=== PATIENT | female | born 1940 | race Caucasian/White ===

== ENCOUNTER 2017-08-12 16:18 | Outpatient (CLI) | payer MEDICARE | END 2017-08-12 16:19 | disposition home or self-care (01) | LOC: BICMAMMO 16:18 | PROVIDERS: ATTEND Obstetrics & Gynecology | DX: Z12.31 Encounter for screening mammogram for malignant neoplasm of breast (principal); R92.1 Mammographic calcification found on diagnostic imaging of breast | CPT/HCPCS: 77063; 77067 ==

== ENCOUNTER 2019-01-03 14:08 | Outpatient (CLI) | payer MEDICARE ==
--- NOTE | 2019-01-03 15:54 | BD ---
DEXA BONE DENSITY STUDY: HISTORY: Postmenopausal female. Screening study. COMPARISON: None. FINDINGS: LUMBAR SPINE BMD (g/cm2) T-SCORE Z-SCORE L1 0.921 -0.6 1.6 L2 0.933 -0.9 1.7 L3 1.087 0.0 2.7 L4 1.069 0.1 2.8 TOTAL 1.010 -0.3 2.2 FEMORAL NECK 0.689 -1.4 0.8 TOTAL 0.813 -1.1 0.9 IMPRESSION: 1. The lumbar spine WHO classification is normal. Fracture risk is not increased. 2. The femoral neck WHO classification is osteopenia. 3. Ten fracture risk is not reported because prior hip or vertebral fracture. POS: OFF
--- NOTE | 2019-01-03 17:05 | MMO ---
Bilateral MAMMO Bilat Screen [facility]. CLINICAL HISTORY: Patient is 78 years old and is seen for screening. The patient has no family history of breast cancer. The patient has no personal history of cancer. VIEWS: The views performed were: bilateral craniocaudal with tomosynthesis and bilateral mediolateral oblique with tomosynthesis. FILMS COMPARED: The present examination has been compared to prior imaging studies performed at [facility] on 10/25/2013, 05/23/2015, 06/22/2016 and 08/12/2017. This study has been interpreted with the assistance of computer-aided detection. MAMMOGRAM FINDINGS: The breasts are heterogeneously dense, which could obscure a lesion on mammography. Benign calcifications are noted bilaterally. There are no suspicious masses, suspicious calcifications, or new areas of architectural distortion. IMPRESSION: THERE IS NO MAMMOGRAPHIC EVIDENCE OF MALIGNANCY. A ROUTINE FOLLOW-UP MAMMOGRAM IN 1 YEAR IS RECOMMENDED. THE RESULTS OF THIS EXAM WERE SENT TO THE PATIENT. ACR BI-RADS Category 2 - Benign finding MAMMOGRAPHY NOTE: 1. A negative mammogram report should not delay a biopsy if a dominant of clinically suspicious mass is present. 2. Approximately 10% to 15% of breast cancers are not detected by mammography. 3. Adenosis and dense breasts may obscure an underlying neoplasm. Reported by: QUENTIN VALENTIN MD Electonically Signed: [id number]
== END 2019-01-03 14:09 | disposition home or self-care (01) ==
LOC: BICMAMMO 14:08
PROVIDERS: ATTEND Obstetrics & Gynecology
DX: Z12.31 Encounter for screening mammogram for malignant neoplasm of breast (principal); M85.859 Other specified disorders of bone density and structure, unspecified thigh
CPT/HCPCS: 77063; 77067; 77080

== ENCOUNTER 2020-07-30 12:14 | Outpatient (CLI) | payer MEDICARE | END 2020-07-30 12:15 | disposition home or self-care (01) | LOC: BICMAMMO 12:14 | PROVIDERS: ATTEND Internal Medicine | DX: Z12.31 Encounter for screening mammogram for malignant neoplasm of breast (principal) | CPT/HCPCS: 77063; 77067 ==